=== PATIENT | female | born 1960 | race Two or more races ===

== ENCOUNTER 2023-08-10 15:46 | Emergency (ER) | payer OTHER ==
[2023-08-10] MEDS ORDERED: Ketorolac 30 MG/ML SDV IM ONE (16:55)
== END 2023-08-10 18:31 | disposition home or self-care (01) ==
LOC: JP.ED 15:46
DX: S52.611A Displaced fracture of right ulna styloid process, initial encounter for closed fracture (principal); S52.591A Other fractures of lower end of right radius, initial encounter for closed fracture; S82.032A Displaced transverse fracture of left patella, initial encounter for closed fracture
CPT/HCPCS: 29125; 73110-RT; 73562-LT; 96372; 99283; J1885

== ENCOUNTER 2023-08-14 09:00 | Day surgery (SDC) | payer OTHER ==
[~2023-08-14 09:00] MED LIST: Dexamethasone 4 MG/ML SDV ONE; Glycopyrrolate 0.2 MG/ML 5 ML MDV ONE; Neostigmine Methylsulfate 10 MG/10 ML MDV ONE; Ondansetron 4 MG/2 ML SDV ONE; Propofol 200 MG/20 ML SDV ONE; Rocuronium 50 MG/5 ML Vial ONE; fentaNYL 250 MCG/5 ML SDV ONE
[2023-08-14] MEDS ORDERED: Lactated Ringers 1,000 ML IV SCH (09:30)
[2023-08-14] MEDS ORDERED: Nozin Nasal Sanitizer NASBOTH ONE (09:30)
[2023-08-14 09:38] LABS: HEMATOCRIT 42.1 % (34.3-46.0); HEMOGLOBIN 14.1 g/dL (11.2-15.5); MEAN CORPUSCULAR HEMOGLOBIN 29.3 pg (31.6-35.5); MEAN CORPUSCULAR HGB CONC 33.5 g/dL (31.6-35.5); MEAN CORPUSCULAR VOLUME 87.3 fL (81.4-99.0); RED BLOOD CELL COUNT 4.82 M/uL (3.77-5.24); WHITE BLOOD CELL COUNT,WBC 7.6 K/uL (3.2-11.0)
[2023-08-14 09:59] LABS: A/G RATIO 0.9 (1.2-2.2); ALANINE AMINOTRANSFERASE,ALT 25 U/L (12-78); ALBUMIN 3.6 g/dL (3.4-5.0); ALKALINE PHOSPHATASE 80 U/L (46-116); ASPARTATE AMNIOTRANSFERASE,AST 18 U/L (15-37); BILIRUBIN TOTAL 0.6 mg/dL (0.2-1.0); BLOOD UREA NITROGEN,BUN 17 mg/dL (7-18); CALCIUM 8.8 mg/dL (8.5-10.1); CARBON DIOXIDE,CO2 30 mmol/L (21-32); CHLORIDE,CL 102 mmol/L (100-108); CREATININE 0.7 mg/dL (0.6-1.0); EST CRCL DRUG DOSING (CG) 59.09 mL/min; ESTIMATED GFR 97 mL/min (>60); GLUCOSE RANDOM 100 mg/dL (74-106); POTASSIUM,K 3.6 mmol/L (3.6-5.2); PROTEIN TOTAL,TP 7.5 g/dL (6.4-8.2); SODIUM,NA 138 mmol/L (140-148)
[2023-08-14 10:02] LABS: ANION GAP 9.6 mmol/L (5.0-14.0)
[2023-08-14] MEDS ORDERED: Bupivacaine 0.5% 50 ML MDV ONE (10:30)
[2023-08-14] MEDS ORDERED: Bupivacaine 0.5%/EPINEPHrine 1:200,000 50 ML MDV ONE (10:30)
[2023-08-14] MEDS ORDERED: fentaNYL 100 MCG/2 ML SDV ONE (12:51)
[2023-08-14] MEDS ORDERED: Acetaminophen/oxyCODONE 325-5 MG Tab PO PRN (14:06)
== END 2023-08-14 15:45 | disposition home or self-care (01) ==
LOC: JP.SDS 09:00
PROVIDERS: ATTEND Specialist
DX: S82.032A Displaced transverse fracture of left patella, initial encounter for closed fracture (principal); S62.101A Fracture of unspecified carpal bone, right wrist, initial encounter for closed fracture; E66.9 Obesity, unspecified; Z68.30 Body mass index [BMI] 30.0-30.9, adult; X58.XXXA Exposure to other specified factors, initial encounter
CPT/HCPCS: 36415; 76000; 80053; 85027; A9270-GY; C1713; J0690; J1100; J2405; J2704; J2710; J3010; J3490; J7120